=== PATIENT | female | born 1975 | race Two or more races ===

== ENCOUNTER 2018-07-13 20:20 | Emergency (ER) | payer SELFPAY ==
[~2018-07-13] VITALS: Ht 165.1 cm; Wt 90.7 kg
[2018-07-14 06:14] VITALS: BP 128/81
== END 2018-07-14 05:49 | disposition home or self-care (01) ==
LOC: ER 20:24
DX: H66.91 Otitis media, unspecified, right ear (principal); J06.9 Acute upper respiratory infection, unspecified
CPT/HCPCS: 36415; 84443